=== PATIENT | male | born 2000 | race Caucasian/White ===

== ENCOUNTER 2019-08-03 13:27 | Emergency (ER) | payer OTHER ==
[~2019-08-03] VITALS: Ht 180.3 cm; Wt 90.9 kg
[2019-08-03] MEDS ORDERED: NS 1,000 ML IV ONE (14:00)
[2019-08-03] MEDS ORDERED: ONDANSETRON 4MG/2ML VIAL (J2405) IV ONE (14:00)
[2019-08-03] MEDS: GASTROGRAFIN SOLUTION 30ML PO SCH ×2 (14:40→15:17)
[2019-08-03 15:07] LABS: BASO # 0.1 10^3/uL (0.0-0.2); BASO % 1.1 % (0.0-1.0); EOS # 0.2 10^3/uL (0.0-0.5); EOS % 2.8 % (0.0-3.0); HEMATOCRIT 43.1 % (42.0-52.0); HEMOGLOBIN 14.4 g/dl (13.5-17.5); LYMPH # 1.7 10^3/uL (1.5-5.0); LYMPH % 31.2 % (24.0-44.0); MEAN CORPUSCULAR HEMOGLOBIN 28.2 pg (27.0-33.0); MEAN CORPUSCULAR HGB CONC 33.4 g/dl (32.0-36.5); MEAN CORPUSCULAR VOLUME 84.5 fl (80.0-96.0); MONO # 0.7 10^3/uL (0.0-0.8); MONO % 12.5 % (0.0-5.0); NEUTROPHILS # 2.8 10^3/uL (1.5-8.5); NEUTROPHILS % 51.8 % (36.0-66.0); PLATELET COUNT, AUTOMATED 174 10^3/uL (150-450); WHITE BLOOD COUNT 5.5 10^3/uL (4.0-10.0)
[2019-08-03 15:29] LABS: ALBUMIN 3.9 GM/DL (3.2-5.2); ALT/SGPT 23 U/L (12-78); BILIRUBIN,DIRECT 0.2 MG/DL (0.0-0.2); BLOOD UREA NITROGEN 9 MG/DL (7-18); C REACTIVE PROTEIN QUANTITATIV 0.77 MG/DL (0.00-0.30); CALCIUM LEVEL 8.8 MG/DL (8.5-10.1); CARBON DIOXIDE LEVEL 28 MEQ/L (21-32); CHLORIDE LEVEL 108 MEQ/L (98-107); CREATININE FOR GFR 1.03 MG/DL (0.70-1.30); ERYTHROCYTE SEDIMENTATION RATE 6 mm/hr (0-15); GLUCOSE, FASTING 83 MG/DL (70-100); LIPASE 66 U/L (73-393); POTASSIUM SERUM 3.7 MEQ/L (3.5-5.1); SODIUM LEVEL 140 MEQ/L (136-145); TOTAL PROTEIN 7.6 GM/DL (6.4-8.2)
[2019-08-03] MEDS ORDERED: ISOVUE-370 76% 100ML VIAL (Q9967) As Ordered ONE (16:20)
[2019-08-03] MEDS ORDERED: ONDA4TAB6 PO (18:48)
[2019-08-03 19:04] VITALS: BP 135/79
--- NOTE | 2019-08-04 07:28 | REP ---
CT ABDOMEN AND PELVIS WITH IV AND ORAL CONTRAST: HISTORY: Mid abdominal pain, rule out colitis versus appendicitis. No comparison study. CT CONTRAST DOSE: 100 mL of intravenous Isovue 370. 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 The lung bases are clear on axial CT images. The liver and the spleen are normal in size homogeneous in texture. No abnormality is noted in the gallbladder or within the pancreas. No adrenal lesion is seen. Kidneys enhance symmetrically and are morphologically intact. There are scattered normal-sized mesenteric lymph nodes. No definite adenopathy. There is a normal appendix visible in the right lower quadrant. Small and large bowel loops are unremarkable in the upper abdomen. There is no evidence of diverticulitis or diverticulosis. No obstruction is seen. No abdominal wall defect is observed. Urinary bladder is unremarkable. Prostate and seminal vesicles show no abnormality. No bony destructive lesion is seen. IMPRESSION: No acute abnormality. Normal appendix seen. Scattered normal-sized small bowel mesenteric lymph nodes and no definite adenopathy. Question mesenteric adenitis. Electronically Signed by Horacio Nichols MD 08/04/2019 09:11 A
== END 2019-08-03 19:06 | disposition home or self-care (01) ==
LOC: M ED 13:27
DX: I88.0 Nonspecific mesenteric lymphadenitis (principal); F17.200 Nicotine dependence, unspecified, uncomplicated
CPT/HCPCS: 36415; 74177; 80048; 80076; 81001; 83690; 85025; 85652; 86140; 87507; 96361; 96374; 99284; J2405; Q9963; Q9967

== ENCOUNTER 2020-04-22 04:58 | Emergency (ER) | payer OTHER ==
[~2020-04-22] VITALS: Ht 180.3 cm; Wt 98.3 kg
[~2020-04-22 04:58] MED LIST: ONDA4TAB6 PO
[2020-04-22] MEDS ORDERED: APAP325T4 PO (05:17)
[2020-04-22] MEDS ORDERED: KETOROLAC 30 MG/ML 1ML VIAL IM ONE (06:30)
[2020-04-22] MEDS ORDERED: LIDOCAINE 5% (LIDODERM) PATCH TD ONE (06:30)
--- NOTE | 2020-04-22 06:46 | REPVR ---
PROCEDURE INFORMATION: Exam: CT Lumbar Spine Without Contrast Exam date and time: 04/22/2020 6:16 AM Age: 19 years old Clinical indication: Low back pain; Additional info: Severe low back pain since September, no imaging, getting worse TECHNIQUE: Imaging protocol: Computed tomography images of the lumbar spine without contrast. Radiation optimization: All CT scans at this facility use at least one of these dose optimization techniques: automated exposure control; mA and/or kV adjustment per patient size (includes targeted exams where dose is matched to clinical indication); or iterative reconstruction. COMPARISON: No relevant prior studies available. FINDINGS: Vertebrae: Normal spinal curvature, vertebral body heights, and alignment. No spinal fracture or acute subluxation. Discs/Spinal canal/Neural foramina: Mild diffuse degenerative disc space loss with small disc bulge/protrusions causing up to mild foraminal and spinal stenosis greatest at L4-S1. Small right paracentral L3-L4 disc protrusion with moderate right subarticular and mild foraminal stenosis. Right paracentral L5-S1 disc protrusion, correlate for right S1 radiculopathy. Soft tissues: Unremarkable. IMPRESSION: 1. No acute vertebral fracture/subluxation. 2. Mild lumbar spondylosis with small disc bulge/protrusions in the lower lumbar spine causing up to mild spinal and foraminal stenosis. 3. Right paracentral L5-S1 disc protrusion, correlate for right S1 radiculopathy. Electronically signed by: Ramiro Haq On 04/22/2020 06:46:05 AM
[2020-04-22 07:45] VITALS: BP 143/81
[2020-04-22] MEDS ORDERED: **NOTE PATIENT COMMENT** MISC XX ONE (18:30)
[2020-05-26] MEDS ORDERED: DICY20TA PO (15:29)
[2020-05-26] MEDS ORDERED: CYCL5TAB PO (15:29)
[2020-05-26] MEDS ORDERED: NAPR375T5 PO (15:30)
== END 2020-04-22 07:46 | disposition home or self-care (01) ==
LOC: M ED 04:58
DX: M51.27 Other intervertebral disc displacement, lumbosacral region (principal); R35.0 Frequency of micturition; F17.200 Nicotine dependence, unspecified, uncomplicated; M47.817 Spondylosis without myelopathy or radiculopathy, lumbosacral region
CPT/HCPCS: 72131; 81001; 96374; 99284; J1885

== ENCOUNTER 2020-06-03 11:40 | Day surgery (SDC) | payer OTHER ==
[~2020-06-03] VITALS: Ht 180.3 cm; Wt 101.6 kg
[~2020-06-03 11:40] MED LIST changes: +APAP325T4 PO; +CYCL5TAB PO; +DICY20TA PO; +NAPR375T5 PO; +NS 1,000 ML IV ONE
[2020-06-03] MEDS ORDERED: LIDOCAINE 2% 100MG/5ML SDV (FOR ANES.) As Ordered ONE (12:14)
[2020-06-03] MEDS ORDERED: propofoL 500 MG/50 ML VIAL As Ordered ONE (12:14)
[2020-06-03] MEDS ORDERED: propofoL 200 MG/20 ML VIAL As Ordered ONE ×2 (13:22→13:33)
--- NOTE | 2020-06-03 13:22 | ROOR ---
Patient Name: Funmilayo Noriega Procedure Date: 06/03/2020 1:04 PM Date of : 2000 Age: 19 Room: [facility] Gender: Male Note Status: Finalized Procedure: Upper Endoscopy + Biopsies Indications: Epigastric abdominal pain Providers: Vincenzo Dutta MD Referring MD: ALEJANDRO SERRANO MD Requesting Provider: Medicines: Monitored Anesthesia Care Complications: No immediate complications. Procedure: Pre-Anesthesia Assessment: - The heart rate, respiratory rate, oxygen saturations, blood pressure, adequacy of pulmonary ventilation, and response to care were monitored throughout the procedure. The Endoscope was introduced through the mouth, and advanced to the second part of duodenum. The upper GI endoscopy was accomplished without difficulty. The patient tolerated the procedure well. Findings: The Z-line was regular and was found 40 cm from the incisors. Multiple biopsies were obtained with cold forceps for evaluation to rule out Price's Esophagus randomly at the gastroesophageal junction. No other significant abnormalities were identified in a careful examination of the stomach. Biopsies were taken with a cold forceps in the gastric antrum for Helicobacter pylori testing. The exam of the duodenum was otherwise normal. Impression: - Z-line regular, 40 cm from the incisors. - Multiple biopsies were obtained at the gastroesophageal junction. - Biopsies were taken with a cold forceps for Helicobacter pylori testing. - The examination was otherwise normal. Recommendation: - Patient has a contact number available for emergencies. The signs and symptoms of potential delayed complications were discussed with the patient. Return to normal activities tomorrow. Written discharge instructions were provided to the patient. - Discharge patient to home. - Follow an antireflux regimen. - Continue present medications. - Await pathology results. - Telephone GI clinic for pathology results in 1 week. - Return to referring physician. - The findings and recommendations were discussed with the patient. Vincenzo Dutta MD Vincenzo Dutta MD 06/03/2020 1:21:32 PM Electronically signed by Vincenzo Dutta MD Number of Addenda: 0 Note Initiated On: 06/03/2020 1:04 PM Estimated Blood Loss: Estimated blood loss: none.
--- NOTE | 2020-06-03 13:42 | ROOR ---
Patient Name: Funmilayo Noriega Procedure Date: 06/03/2020 1:05 PM Date of : 2000 Age: 19 Room: [facility] Gender: Male Note Status: Finalized Procedure: Total Colonoscopy to Cecum + ileoscopy + Bx Indications: Clinically significant diarrhea of unexplained origin, Change in bowel habits Providers: Vincenzo Dutta MD Referring MD: ALEJANDRO SERRANO MD Requesting Provider: Medicines: Monitored Anesthesia Care Complications: No immediate complications. Procedure: Pre-Anesthesia Assessment: - The heart rate, respiratory rate, oxygen saturations, blood pressure, adequacy of pulmonary ventilation, and response to care were monitored throughout the procedure. The Colonoscope was introduced through the anus and advanced to the terminal ileum, with identification of the appendiceal orifice and IC valve. The colonoscopy was performed without difficulty. The patient tolerated the procedure well. The quality of the bowel preparation was good. Findings: The perianal and digital rectal examinations were normal. Non-bleeding internal hemorrhoids were found during retroflexion. The hemorrhoids were small and Grade I (internal hemorrhoids that do not prolapse). No other significant abnormalities were identified in a careful examination of the remainder of the colon. The terminal ileum appeared normal. Biopsies for histology were taken with a cold forceps from the ascending colon, transverse colon, descending colon and rectosigmoid colon for evaluation of microscopic colitis. The exam was otherwise without abnormality. Impression: - Non-bleeding internal hemorrhoids. - The examined portion of the ileum was normal. - The examination was otherwise normal. - Biopsies were taken with a cold forceps from the ascending colon, transverse colon, descending colon and rectosigmoid colon for evaluation of microscopic colitis. - The exam was otherwise normal to the cecum. Recommendation: - Patient has a contact number available for emergencies. The signs and symptoms of potential delayed complications were discussed with the patient. Return to normal activities tomorrow. Written discharge instructions were provided to the patient. - Discharge patient to home. - Continue present medications. - Await pathology results. - Telephone GI clinic for pathology results in 1 week. - Repeat colonoscopy at age 48 for screening purposes. - Return to referring physician. - The findings and recommendations were discussed with the patient. Vincenzo Dutta MD Vincenzo Dutta MD 06/03/2020 1:41:31 PM Electronically signed by Vincenzo Dutta MD Number of Addenda: 0 Note Initiated On: 06/03/2020 1:05 PM Estimated Blood Loss: Estimated blood loss: none.
[2020-06-03 14:06] VITALS: BP 138/79
== END 2020-06-03 14:08 | disposition home or self-care (01) ==
LOC: M OPP 11:40
PROVIDERS: ATTEND Internal Medicine Gastroenterology
DX: K64.0 First degree hemorrhoids (principal); R19.7 Diarrhea, unspecified; R19.4 Change in bowel habit; R10.13 Epigastric pain; F17.210 Nicotine dependence, cigarettes, uncomplicated; Z79.899 Other long term (current) drug therapy

== ENCOUNTER → 2020-10-13 | Outpatient (CLI) | payer OTHER ==
[~2020-10-13] MED LIST changes: -DICY20TA PO; +DICY20TA3 PO; -NS 1,000 ML IV ONE
--- NOTE | 2020-10-13 17:08 | REPVR ---
PROCEDURE INFORMATION: Exam: MR Thoracic Spine Without Contrast Exam date and time: 10/13/2020 3:35 PM Age: 19 years old Clinical indication: Pain in thoracic spine TECHNIQUE: Imaging protocol: Multiplanar magnetic resonance images of the thoracic spine without contrast. COMPARISON: No relevant prior studies available. FINDINGS: Thoracic vertebral body heights are maintained. No abnormal marrow signal. No cord compression. No abnormal cord signal. Thoracic kyphosis is preserved. Thoracic disc space heights are unremarkable. Soft tissues are unremarkable. IMPRESSION: No acute findings in the thoracic spine. Electronically signed by: Ron Payne On 10/13/2020 17:07:58 PM
== END ==
LOC: M PLARAD 13:28
PROVIDERS: ATTEND Physician Assistant
DX: M54.6 Pain in thoracic spine (principal); M40.294 Other kyphosis, thoracic region